=== PATIENT | male | born 1945 | race Caucasian/White ===

== ENCOUNTER 2017-11-07 12:32 | Emergency (ER) | payer MEDICARE, MEDICAID ==
[2017-11-07 13:22] LABS: #Basophils 0.1 thou/uL (0.0-0.2); #Eosinphils 0.2 thou/uL (0.0-0.7); #Lymphocytes 1.9 thou/uL (1.20-3.40); #Monocytes 0.6 thou/uL (0.11-0.59); #Neutrophils 5.3 thou/uL (1.40-6.50); %Basophils 1.3 % (0.0-1.0); %Eosinophils 2.1 % (0.0-10.0); %Lymphocytes 23.4 % (21.0-51.0); %Monocytes 6.9 % (0.0-10.0); Hematocrit 46.1 % (42.0-52.0); Mean Platelet Volume 6.8 fL (7.4-10.4); Red Blood Cell (RBC) Count 4.63 mill/uL (4.70-6.10)
[2017-11-07 13:44] LABS: ALT (SGPT) 10 U/L (8-55); AST (SGOT) 10 U/L (5-34); Alkaline Phosphatase 48 U/L (40-150); Anion Gap 12 mmol/L (10-20); BUN (Urea Nitrogen) 12 mg/dL (8.4-25.7); Bilirubin, Total 0.4 mg/dL (0.2-1.2); CK (CPK) 75 U/L (30-200); Calc. Creatinine Clearance 0 mL/min (70-130); Calcium 9.5 mg/dL (7.8-10.44); Carbon Dioxide 24 mmol/L (23-31); Chloride 103 mmol/L (98-107); Estimated GFR-MDRD Greater than 90; Globulin 2.6 g/dL (2.4-3.5); Lipase 24 U/L (8-78); Magnesium 2.2 mg/dL (1.6-2.6); Protein, Total 6.9 g/dL (5.8-8.1)
[2017-11-07 13:48] LABS: Troponin I 0.013 ng/mL (< 0.028)
--- NOTE | 2017-11-07 14:08 | RAD ---
AP VIEW CHEST: Date: 11/07/17 HISTORY: Chest pain. FINDINGS: Comparison made to previous exam from 11/07/13. AP view of chest demonstrates radiopaque metallic density over the left mid lung, unchanged since the previous exam. No acute intrathoracic abnormality seen. No evidence of effusions, pneumonia, or pneu mothorax seen. IMPRESSION: Radiopaque density in the left mid lung. No acute intrathoracic abnormality seen. No evidence of pneu monia or pneumothorax seen. POS: [facility]
--- NOTE | 2017-11-07 14:09 | RAD ---
3 VIEWS RIGHT SHOULDER: Date: 11/07/17 HISTORY: Right shoulder pain. FINDINGS: AP internally, externally, and scapular Y views right shoulder obtained. Three views right shoulder demonstrate no evidence of acute right shoulder fractures, subluxations, o r bony lesions. Some right AC joint degenerative change is seen. IMPRESSION: No evidence of acute right shoulder abnormalities seen. POS: [facility]
[2017-11-07] MEDS ORDERED: Morphine 4 MG/ML VIAL ONE (14:18)
[2017-11-07] MEDS ORDERED: Ketorolac Tromethamine 30 MG/ML VIAL ONE (14:18)
--- NOTE | 2017-11-07 14:24 | CT ---
CT BRAIN: Date: 11/07/17 HISTORY: Altered mental status, weakness for 1 week. TECHNIQUE: Noncontrast enhanced CT images of brain obtained. FINDINGS: The brain is unremarkable. No evidence of intracranial masses, hemorrhages, strokes, or contusions se en. IMPRESSION: Normal CT brain. POS: [facility]
--- NOTE | 2017-11-07 14:32 | CT ---
CT CERVICAL SPINE: Date: 11/07/17 HISTORY: Altered mental status. Facial droop. Right leg pain. FINDINGS: Noncontrast enhanced CT of the cervical spine obtained. There is mild retrolisthesis of C6 on C7. No evidence of acute cervical spine fractures seen. C6-7 ne ural foraminal narrowing is seen due to uncovertebral osteophyte hypertrophy. No evidence of acute ce rvical spine fractures seen. IMPRESSION: Retrolisthesis of C6 on C7 and bilateral C6-7 neural foraminal narrowing. No acute abnormality is not ed. POS: [facility]
[2017-11-07] MEDS ORDERED: Dexamethasone 4 MG TAB PO SCH (14:45)
== END 2017-11-07 15:54 | disposition home or self-care (01) ==
LOC: ERS 12:32
DX: M54.12 Radiculopathy, cervical region (principal); G89.29 Other chronic pain; I10 Essential (primary) hypertension; M19.90 Unspecified osteoarthritis, unspecified site
CPT/HCPCS: 36415; 70450; 71010; 72125; 80053; 82550; 82553; 83690; 83735; 84484; 85025; 93005; 96374; 96375; J1885; J2270; J8540

== ENCOUNTER 2018-04-29 15:59 | Emergency (ER) | payer MEDICARE, MEDICAID ==
[2018-04-29 16:57] LABS: Bilirubin Small (Negative); Blood, Urine Negative (Negative); Clarity CLEAR (Clear); Glucose, Urine (Dipstick) 100 mg/dL (Negative); Leukocyte Negative (Negative); Nitrite Negative (Negative); Protein, Urine (Dipstick) Trace mg/dL (Neg-Trace); Specific Gravity, Urine 1.026 (1.002-1.036); pH, Urine 7.5 (5.0-9.0)
[2018-04-29] MEDS ORDERED: Ondansetron ODT 4 MG TAB ONE (17:00)
[2018-04-29 17:09] LABS: #Eosinphils 0.1 thou/uL (0.0-0.7); #Lymphocytes 1.3 thou/uL (1.20-3.40); #Monocytes 0.9 thou/uL (0.11-0.59); #Neutrophils 8.1 thou/uL (1.40-6.50); %Basophils 0.5 % (0.0-1.0); %Lymphocytes 12.8 % (21.0-51.0); %Monocytes 8.4 % (0.0-10.0); %Neutrophils 77.3 % (42.0-75.0); Hemoglobin 16.2 g/dL (14.0-18.0); Mean Corpuscular HGB CONC 34.9 g/dL (32.0-36.0); Mean Corpuscular Hemoglobin 33.3 pg (27.0-31.0); Mean Corpuscular Volume 95.2 fl (80.0-94.0); Mean Platelet Volume 6.5 fL (7.4-10.4); Platelet Count 183 thou/uL (130-400); RBC Distribution Width 12.2 % (11.5-14.5); Red Blood Cell (RBC) Count 4.86 mill/uL (4.70-6.10); White Blood Cell (WBC) Count 10.5 thou/uL (4.8-10.8)
[2018-04-29 17:33] LABS: ALT (SGPT) 11 U/L (8-55); AST (SGOT) 10 U/L (5-34); Albumin 4.3 g/dL (3.4-4.8); Alkaline Phosphatase 59 U/L (40-150); Anion Gap 14 mmol/L (10-20); BUN (Urea Nitrogen) 14 mg/dL (8.4-25.7); Bilirubin, Total 0.7 mg/dL (0.2-1.2); Calc. Creatinine Clearance 0 mL/min (70-130); Calcium 9.7 mg/dL (7.8-10.44); Carbon Dioxide 24 mmol/L (23-31); Chloride 104 mmol/L (98-107); Estimated GFR-MDRD 86; Globulin 2.9 g/dL (2.4-3.5); Glucose 98 mg/dL (83-110); Lipase 33 U/L (8-78); Potassium 4.5 mmol/L (3.5-5.1); Protein, Total 7.2 g/dL (5.8-8.1); Sodium 137 mmol/L (136-145)
== END 2018-04-29 18:37 | disposition home or self-care (01) ==
LOC: ERS 15:59
DX: K02.9 Dental caries, unspecified (principal); K03.81 Cracked tooth; I10 Essential (primary) hypertension; M19.90 Unspecified osteoarthritis, unspecified site; F17.220 Nicotine dependence, chewing tobacco, uncomplicated; Z79.899 Other long term (current) drug therapy; Z79.82 Long term (current) use of aspirin
CPT/HCPCS: 36415; 80053; 81003; 83690; 85025; 96374; J2270; Q0162

== ENCOUNTER 2018-05-13 20:25 | Emergency (ER) | payer MEDICARE, MEDICAID | END 2018-05-13 21:29 | disposition home or self-care (01) | LOC: SCSER 20:25 | DX: K04.7 Periapical abscess without sinus (principal); K62.1 Rectal polyp; Z79.899 Other long term (current) drug therapy; I10 Essential (primary) hypertension; M19.90 Unspecified osteoarthritis, unspecified site | CPT/HCPCS: 99282 ==

== ENCOUNTER 2022-07-15 15:41 | Emergency (ER) | payer MEDICARE, OTHER | END 2022-07-15 18:30 | disposition home or self-care (01) | LOC: ERS 15:41 | DX: A63.0 Anogenital (venereal) warts (principal); I10 Essential (primary) hypertension; M19.90 Unspecified osteoarthritis, unspecified site; F17.220 Nicotine dependence, chewing tobacco, uncomplicated | CPT/HCPCS: 99282 ==